=== PATIENT | female | born 1995 | race Caucasian/White ===

== ENCOUNTER 2017-12-03 09:25 | Emergency (ER) | payer OTHER, SELFPAY ==
[2017-12-03 09:25] VITALS: BP 126/93; PULSE 86; RESP 18; TEMP 36.6; O2SAT 98; BMI 26.4
--- NOTE | 2017-12-03 09:39 | ED.VISSUMM ---
- ER Visit Summary Date of Service: 12/03/17 Chief Complaint: Left knee pain History of Present Illness: The patient is a 22 F presents to the emergency department left knee pain. Patient was in her normal state of health. She recently started a new job. She states over the past week, she has had swelling in her left knee. She denies any injury. She actually went to [facility] on Sunday. She had x-rays which are unremarkable. She was placed in an Travon wrap. She was told it was likely some ligamentous strain. She states she is back to work today and was still having pain. States her work made her come here for reevaluation. She denies any specific injury. The knee is not giving out. Physical Examination: Exam is relatively unremarkable. Patient does have a small effusion of the left knee. There is no gross laxity. Extension is preserved. There is no pain with small arc range of motion. Calf is soft. Pulses are normal. Test Results: [] Emergency Department Course and Treatment: I did not repeat the patient's x-rays she has had no new injury. There is no significant laxity of the knee. There is a small effusion. I do suspect she may have a meniscus injury. She will continue Travon wrap. She will be placed on light duty. She will be started on anti-inflammatories and given outpatient orthopedic follow-up. Treatment Plan: [] Disposition: Charge Impression: 1. Left knee sprain This note was generated with Recurious dictation software. It may contain incorrect words, spelling, and punctuation that were not noted in review of the chart prior to signing ED Disposition - Plan for ED Patient: Chief Complaint: Lower Extremity Injury Instructions: ED Sprain Knee Prescriptions: Naproxen [Naprosyn] 500 mg PO BID PRN #20 tab Referrals: Skyler Landers DO [STAFF PHYSICIAN] -
--- NOTE | 2017-12-03 09:42 | ED.DCSUM_ITS ---
- ER Visit Summary Date of Service: 12/03/17 Chief Complaint: Left knee pain History of Present Illness: The patient is a 22 F presents to the emergency department left knee pain. Patient was in her normal state of health. She recently started a new job. She states over the past week, she has had swelling in her left knee. She denies any injury. She actually went to [facility] on Sunday. She had x-rays which are unremarkable. She was placed in an Travon wrap. She was told it was likely some ligamentous strain. She states she is back to work today and was still having pain. States her work made her come here for reevaluation. She denies any specific injury. The knee is not giving out. Physical Examination: Exam is relatively unremarkable. Patient does have a small effusion of the left knee. There is no gross laxity. Extension is preserved. There is no pain with small arc range of motion. Calf is soft. Pulses are normal. Test Results: [] Emergency Department Course and Treatment: I did not repeat the patient's x- rays she has had no new injury. There is no significant laxity of the knee. There is a small effusion. I do suspect she may have a meniscus injury. She will continue Travon wrap. She will be placed on light duty. She will be started on anti-inflammatories and given outpatient orthopedic follow-up. Treatment Plan: [] Disposition: Charge Impression: 1. Left knee sprain This note was generated with [employer] dictation software. It may contain incorrect words, spelling, and punctuation that were not noted in review of the chart prior to signing ED Disposition - Plan for ED Patient: Chief Complaint: Lower Extremity Injury Instructions: ED Sprain Knee Prescriptions: Naproxen [Naprosyn] 500 mg PO BID PRN #20 tab Referrals: Skyler Landers DO [STAFF PHYSICIAN] -
== END 2017-12-03 10:04 | disposition home or self-care (01) ==
LOC: ED 10:01
PROVIDERS: Emergency Provider Emergency Medicine
DX: S83.92XA Sprain of unspecified site of left knee, initial encounter (principal); X58.XXXA Exposure to other specified factors, initial encounter; Y93.9 Activity, unspecified; Y92.9 Unspecified place or not applicable; Y99.9 Unspecified external cause status; Z79.899 Other long term (current) drug therapy
CPT/HCPCS: 99282

== ENCOUNTER → 2018-06-25 13:30 | Outpatient (CLI) | payer BC, SELFPAY ==
[2018-06-28 12:45] LABS: HPV Reflexed? NOT INDICATED
== END ==
PROVIDERS: Referring Provider Obstetrics & Gynecology; Visit Provider Obstetrics & Gynecology
DX: Z12.4 Encounter for screening for malignant neoplasm of cervix (principal)
CPT/HCPCS: 87624; 88175; G0145